=== PATIENT | male | born 1965 | race Caucasian/White ===

== ENCOUNTER 2021-08-23 18:30 | Outpatient (CLI) | payer OTHER, BC | END 2021-08-23 20:00 | disposition home or self-care (01) | LOC: SLB 18:30 → EDSTATUS 08-27 08:30 | PROVIDERS: ATTEND Internal Medicine | DX: D64.9 Anemia, unspecified (principal); K59.03 Drug induced constipation; Z20.822 Contact with and (suspected) exposure to COVID-19; Z53.8 Procedure and treatment not carried out for other reasons | CPT/HCPCS: U0003 ==

== ENCOUNTER 2021-08-25 16:37 | Emergency (ER) | payer OTHER, BC ==
[~2021-08-25] VITALS: Ht 180.3 cm; Wt 115.7 kg
[2021-08-25 17:01] VITALS: BP_SYST 154
--- NOTE | 2021-08-25 17:05 | NUR ---
TPatient triaged and placed in waiting room. VSS and patient appears in no acute distress at this time. Accompanied by FIANCEE, awaiting available bed, and MD notified of need for MSE.
--- NOTE | 2021-08-25 18:50 | NUR ---
Placed in room 02 . Placed on monitor technician, blood pressure machine and pulse oximeter. To gown for exam. Side rails up. Report given to PAUL GALVIN
--- NOTE | 2021-08-25 18:56 | NUR ---
Pt. came in with c/o abd. pain, nausea and dry heaves, pt. states he was taking clindamycin as of and began having itchiness monday and then abd. pain monday which has gradually worsend. 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 recalls this happened last year when was on antibiotics
[2021-08-25 19:08] LABS: BASOPHILS % (AUTO) 0.5 % (0.0-2.0); EOSINOPHILS % (AUTO) 0.1 % (0.0-4.0); HEMOGLOBIN 12.1 g/dL (14.0-18.0); LYMPHOCYTES # (AUTO) 0.7 K/uL (1.0-5.5); LYMPHOCYTES % (AUTO) 11.5 % (20.5-51.5); MEAN CORPUSCULAR HEMOGLOBIN 30 pg (27-31); MEAN CORPUSCULAR HGB CONC 33 % (32-36); MEAN CORPUSCULAR VOLUME 92 fL (79.0-98.0); MONOCYTES # (AUTO) 0.2 K/uL (0.0-1.0); MONOCYTES % (AUTO) 3.8 % (1.7-9.3); NEUTROPHILS # (AUTO) 5.4 K/uL (1.8-7.7); NEUTROPHILS % (AUTO) 84.1 % (40.0-70.0); PLATELET COUNT (AUTO) 225 K/uL (130-430); RED BLOOD CELL COUNT(AUTO) 4.02 MIL/uL (4.2-6.2); RED CELL DISTRIBUTION WIDTH 18.7 % (9.0-15.0); WHITE BLOOD COUNT (AUTO) 6.4 K/uL (4.8-10.8)
--- NOTE | 2021-08-25 19:13 | NUR ---
report to Shelli
[2021-08-25 19:22] LABS: CREATININE 4.28 mg/dL (0.55-1.30); POTASSIUM 4.3 mmol/L (3.5-5.1)
[2021-08-25 19:28] LABS: ALBUMIN 3.2 g/dL (3.4-4.8); TOTAL BILIRUBIN 0.7 mg/dL (0.0-1.0)
[2021-08-25] MEDS ORDERED: HYDROmorphone 1 MG/ML INJ. CARTRIDGE IVP ONE (20:30)
[2021-08-25] MEDS ORDERED: ONDANSETRON HCL 4 MG/2 ML VIAL IVP ONE ×2 (20:30→23:15)
[2021-08-25] MEDS ORDERED: NACL 0.9% 1,000 ML IV ONE (20:30)
[2021-08-25] MEDS ORDERED: MAG HYDROX/AL HYDROX/SIMETH 30 ML, LIDOCAINE VISCOUS 2% 15ML (PO) 15 ML, DICYCLOMINE HC... PO ONE ×3 (20:30)
--- NOTE | 2021-08-25 21:34 | NUR ---
RN entered rm to assess pt pain level. Pt is asleep and snoring. Will continue to monitor.
[2021-08-25] MEDS ORDERED: MORPHINE 4 MG INJ. 4 MG/ML VIAL IVP ONE (23:00)
[2021-08-25] MEDS ORDERED: DICYCLOMINE HCL 20 MG/2 ML AMP IM ONE (23:15)
--- NOTE | 2021-08-26 03:06 | NUR ---
Pt resting. No complaints at this time
[2021-08-26] MEDS ORDERED: ONDA-8 TL (04:30)
[2021-08-26] MEDS ORDERED: ONDANSETRON 4 MG ODT TAB ONE (04:39)
[2021-08-26 04:45] VITALS: BP_SYST 164
[2021-08-26] MEDS ORDERED: ONDANSETRON 4 MG ODT TAB PO ONE (04:45)
[2021-08-26] MEDS ORDERED: HYDR-3917 PO (13:35)
== END 2021-08-26 04:45 | disposition home or self-care (01) ==
LOC: SED 18:58
DX: R10.13 Epigastric pain (principal); E11.9 Type 2 diabetes mellitus without complications; Z88.1 Allergy status to other antibiotic agents; Z79.899 Other long term (current) drug therapy
CPT/HCPCS: 36415; 74176; 76376; 80053; 83605; 83690; 84484; 85025; 93005; 96372; 96374; 96375; 96376; 99285; J0500; J2001; J2270; J2405; Q0162; 76700-TC; Q9967

== ENCOUNTER 2021-09-24 10:00 | Outpatient (CLI) | payer OTHER, BC, SELFPAY ==
[~2021-09-24 10:00] MED LIST: HYDR-3917 PO; ONDA-8 TL
== END 2021-09-24 11:00 | disposition home or self-care (01) ==
LOC: SLB 10:00 → EDSTATUS 09-28 10:30
PROVIDERS: ATTEND Family Medicine
DX: Z20.822 Contact with and (suspected) exposure to COVID-19 (principal)
CPT/HCPCS: U0003